=== PATIENT | male | born 1950 | race Caucasian/White ===

== ENCOUNTER 2018-01-17 10:43 | Outpatient (REF) | payer MEDICARE, MEDICAID, SELFPAY ==
[2018-01-17 20:53] LABS: HCT 45.7 % (40.0-50.0); HGB 15.6 g/dL (13.5-17.5); Mean Corp. HGB Concentration 34.1 g/dL (32.0-36.0); Mean Corpuscular Hemoglobin 29.2 pg (27.0-33.0); Mean Corpuscular Volume 85.4 fL (80-95); Platelet Count 459 x1000/uL (130-400); RBC 5.35 m/cumm (4.50-6.00); RBC Distribution Width 14.6 % (11.8-14.1); White Blood Cell Count 8.32 k/cumm (4.4-10.8)
[2018-01-17 20:57] LABS: ALT 40 U/L (12-78); AST 24 U/L (15-37); Albumin 3.5 g/dL (3.4-5.0); Alkaline Phosphatase 131 U/L (46-116); Anion Gap 13.4 mmol/L (3-11); BUN 24 mg/dL (7-18); Bilirubin, Total 0.6 mg/dL (0.2-1.0); CO2 24.6 mmol/L (21.0-32.0); CREATININE 1.04 mg/dL (0.70-1.30); Calcium 9.3 mg/dL (8.5-10.1); Chloride 100 mmol/L (98-107); Glucose 129 mg/dL (70-100); Potassium 3.7 mmol/L (3.5-5.1); Sodium 138 mmol/L (136-145); Total Protein 7.4 g/dL (6.4-8.2); Uric Acid 5.3 mg/dL (3.5-7.2)
== END 2018-01-17 11:03 ==
LOC: NCHCN 10:43
PROVIDERS: PCP Specialist/Technologist Athletic Trainer; Visit Provider Specialist/Technologist Athletic Trainer
DX: M12.871 Other specific arthropathies, not elsewhere classified, right ankle and foot (principal); M10.9 Gout, unspecified
CPT/HCPCS: 80053; 85027; 84550

== ENCOUNTER 2018-10-17 15:31 | Outpatient (REF) | payer MEDICARE, MEDICAID, SELFPAY ==
[2018-10-17 21:17] LABS: ALT 60 U/L (12-78); AST 22 U/L (15-37); Albumin 3.8 g/dL (3.4-5.0); Alkaline Phosphatase 121 U/L (46-116); Anion Gap 12.1 mmol/L (3-11); BUN 24 mg/dL (7-18); Bilirubin, Total 0.6 mg/dL (0.2-1.0); CO2 25.9 mmol/L (21.0-32.0); CREATININE 1.29 mg/dL (0.70-1.30); Calcium 9.7 mg/dL (8.5-10.1); Chloride 104 mmol/L (98-107); Estimated GFR 55.39 (mL/min/1.73m2); Glucose 120 mg/dL (70-100); Potassium 4.2 mmol/L (3.5-5.1); Sodium 142 mmol/L (136-145); Total Protein 7.4 g/dL (6.4-8.2); Uric Acid 5.2 mg/dL (3.5-7.2)
== END 2018-10-17 15:51 ==
LOC: NCHCN 15:31
PROVIDERS: PCP Specialist/Technologist Athletic Trainer; Visit Provider Specialist/Technologist Athletic Trainer
DX: I10 Essential (primary) hypertension (principal); M10.9 Gout, unspecified
CPT/HCPCS: 80053; 84550

== ENCOUNTER 2019-10-23 09:53 | Outpatient (REF) | payer MEDICARE, SELFPAY ==
[2019-10-23 19:27] LABS: Hemoglobin A1C 5.9 % (3.8-5.6)
[2019-10-23 19:42] LABS: Anion Gap 8.9 mmol/L (3-11); BUN 18 mg/dL (7-18); CO2 26.1 mmol/L (21.0-32.0); CREATININE 1.26 mg/dL (0.70-1.30); Calculated LDL 156 mg/dL (<100); Chloride 104 mmol/L (98-107); Cholesterol 228 mg/dL (<200); Estimated GFR 56.74 (mL/min/1.73m2); Glucose 119 mg/dL (74-106); HDL Cholesterol 35 mg/dL (40-60); Potassium 4.6 mmol/L (3.5-5.1); Sodium 139 mmol/L (136-145); Triglyceride 188 mg/dL (<150)
[2019-10-23 19:47] LABS: Calcium 9.8 mg/dL (8.5-10.1)
== END 2019-10-23 10:13 ==
LOC: NCHCN 09:53
PROVIDERS: PCP Specialist/Technologist Athletic Trainer; Visit Provider Nurse Practitioner Family
DX: I10 Essential (primary) hypertension (principal); R73.03 Prediabetes; E78.5 Hyperlipidemia, unspecified
CPT/HCPCS: 80048; 80061; 83036

== ENCOUNTER 2020-09-30 10:20 | Outpatient (REF) | payer MEDICARE, SELFPAY ==
[2020-09-30 16:18] LABS: Hemoglobin A1C 6.1 % (<5.7)
[2020-09-30 16:28] LABS: Anion Gap 10.1 mmol/L (3-11); BUN 20 mg/dL (7-18); CO2 25.9 mmol/L (21.0-32.0); CREATININE 1.2 mg/dL (0.70-1.30); Calcium 9.3 mg/dL (8.5-10.1); Calculated LDL 138 mg/dL (<100); Chloride 105 mmol/L (98-107); Cholesterol 228 mg/dL (<200); Estimated GFR 59.86 (mL/min/1.73m2); Glucose 162 mg/dL (74-106); HDL Cholesterol 34 mg/dL (40-60); Potassium 4.3 mmol/L (3.5-5.1); Sodium 141 mmol/L (136-145); Triglyceride 281 mg/dL (<150)
[2020-10-01 17:23] LABS: Creatine Kinase 57 U/L (39-308)
== END 2020-09-30 10:21 | disposition home or self-care (01) ==
LOC: NCHCN 10:20
PROVIDERS: PCP Specialist/Technologist Athletic Trainer; Visit Provider Nurse Practitioner Family
DX: E78.5 Hyperlipidemia, unspecified (principal); I10 Essential (primary) hypertension; R73.09 Other abnormal glucose
CPT/HCPCS: 80048; 80061; 82550; 83036

== ENCOUNTER 2021-12-30 15:42 | Outpatient (REF) | payer MEDICARE, SELFPAY ==
[2021-12-30 20:15] LABS: Hemoglobin A1C 6.1 % (<5.7)
[2021-12-30 20:24] LABS: Anion Gap 11.8 mmol/L (3-11); BUN 25 mg/dL (7-18); CO2 24.2 mmol/L (21.0-32.0); CREATININE 1.2 mg/dL (0.70-1.30); Calcium 9.4 mg/dL (8.5-10.1); Calculated LDL 50 mg/dL (<100); Chloride 105 mmol/L (98-107); Cholesterol 131 mg/dL (<200); Estimated GFR 64.25 (mL/min/1.73m2); Glucose 193 mg/dL (74-106); HDL Cholesterol 41 mg/dL (40-60); Sodium 141 mmol/L (136-145); Triglyceride 203 mg/dL (<150)
[2021-12-30 20:39] LABS: Uric Acid 8.3 mg/dL (3.5-7.2)
== END 2021-12-30 15:43 | disposition home or self-care (01) ==
LOC: NCHCN 15:42
PROVIDERS: PCP Specialist/Technologist Athletic Trainer; Visit Provider Nurse Practitioner Family
DX: E78.5 Hyperlipidemia, unspecified (principal); I10 Essential (primary) hypertension; M10.9 Gout, unspecified; G47.9 Sleep disorder, unspecified; R73.09 Other abnormal glucose
CPT/HCPCS: 80048; 80061; 83036; 84550

== ENCOUNTER 2023-03-02 19:25 | Outpatient (REF) | payer OTHER, MEDICAID, SELFPAY ==
[2023-03-02 18:43] LABS: Abs Immature Grans 0.02 10^3/uL (0.0-0.06); Absolute Eosinophil Count 0.45 10^3/uL (0.0-0.7); Absolute Monocyte Count 0.98 10^3/uL (0.1-0.8); Absolute Neutrophil Count 6.65 10^3/uL (1.2-6.7); Eosinophils % 4.5; HCT 50.1 % (40.0-50.0); HGB 16.8 g/dL (13.5-17.5); Immature Grans % 0.2; Lymphocytes % 17.2; MCH 29.2 pg (27.0-33.0); MCHC 33.5 % (32.0-36.0); MCV 87 fL (80-95); MPV 10.7 fL (8.0-11.0); Monocytes % 9.9; Neutrophils % 67.2; RBC 5.76 10^6/uL (4.36-5.78); RDW 13.4 % (11.8-14.1); RDW-SD 42.5 fL
[2023-03-02 18:57] LABS: Platelet Count 257 10^3/uL (130-400)
[2023-03-02 19:10] LABS: Hemoglobin A1C 5.8 % (<5.7)
[2023-03-02 19:11] LABS: Vitamin D 25 Total 21.7 ng/mL (30-100)
[2023-03-02 19:14] LABS: ALT 27 U/L (16-63); AST 21 U/L (15-37); Albumin 3.7 g/dL (3.4-5.0); Alkaline Phosphatase 145 U/L (46-116); Anion Gap 9.9 mmol/L (3-11); BUN 15 mg/dL (7-18); Bilirubin, Total 0.6 mg/dL (0.2-1.0); CO2 26.1 mmol/L (21.0-32.0); CREATININE 1.1 mg/dL (0.70-1.30); Calcium 9.9 mg/dL (8.5-10.1); Chloride 101 mmol/L (98-107); Estimated GFR 70.88 (mL/min/1.73m2); Glucose 139 mg/dL (74-106); Potassium 4.4 mmol/L (3.5-5.1); Sodium 137 mmol/L (136-145); Total Protein 7.9 g/dL (6.4-8.2); Vitamin B12 264 pg/mL (193-986)
== END 2023-03-02 19:26 | disposition home or self-care (01) ==
LOC: NCHCN 19:25
PROVIDERS: PCP Specialist/Technologist Athletic Trainer; Visit Provider Nurse Practitioner Family
DX: R73.03 Prediabetes (principal); Z00.00 Encounter for general adult medical examination without abnormal findings; G20.C Parkinsonism, unspecified
CPT/HCPCS: 80053; 82306; 82607; 83036; 85025

== ENCOUNTER 2023-11-23 20:38 | Outpatient (REF) | payer OTHER, MEDICAID, SELFPAY ==
--- OUTSIDE RECORDS SUMMARY | 2023-11-23 20:49 | XMS_ITS | Encounter Summary ---
[place] [address] Care Team Providers Care Convolute Tube Winder Name Role Phone Luiscarmelita Dannielle CORONEL Primary Care Provider [phone] Reason for Visit * Diagnostic Test (Routine) - Closed Specialty Diagnoses / Procedures Referred By Contac t Referred To Contact Radiology Diagnoses Parkinsonism, unspecified Parkinsonism type Procedures NM Brain Imaging for Parkinsons Disease Brody Mendez MD [address] [place] [address] [place] [address] Referral ID Status Reason Start Date Expiration Date V isits Requested Visits Authorized [id number] Closed Specialty Service Requested 09/07/2021 03/10/2023 1 1 Encounter Details Date Type Department Care Team (Late st Contact Info) Description 11/04/2021 5:57 AM EDT - 11/04/2021 12:54 PM EDT Hospital Encounter [place] [address] Brody Mendez MD [address] [place] [address] Discharge Disposition: Home Social History Tobacco Use Types Packs/Day Years Used Date Smoking Tobacco: Never Assessed Sex and Gender Information Value Date Recorded Sex Assigned at Not on file Gender Identity Not on file Sexual Orientation Not on file documented as of this encounter Plan of Treatment Not on file documented as of this encounter Procedures Procedure Name Priority Date/Time Associated Diagnosis Comments NM BRAIN IMAGING FOR PARKINSONS DISEASE Routine 11/04/2021 2:08 PM EDT Parkinsonism, unspecified Parkinsonism type documented in this encounter Visit Diagnoses Not on filedocumented in this encounter Administered Medications Inactive Administered Medications - up to 3 most recent administrations Medication Order MAR Action Action Date Dose Rate Site ioflupane (I-123) (DATSCAN) injection 0-6 mCi 0-6 mCi, Intravenous, ONCE PRN, 1 dose, Starting on Sun11/04/21 at 0913, Until Sun11/04/21 at 0850, Per Protocol, Radiology Contrast, Routine Given 11/04/2021 8:50 AM EDT 5.3 mCi documented in this encounter Care Teams Convolute Tube Winder Relationship Specialty Start Date End Date Dannielle Ny APRN [address] [place] [address] PCP - General Family Medicine 11/04/21 documented as of this encounter
--- OUTSIDE RECORDS SUMMARY | 2023-11-23 20:49 | XMS_ITS | Encounter Summary ---
[place] [address] Care Team Providers Care Nurse Anesthetist Name Role Phone Dannielle Ny APRN Primary Care Provider [phone] Reason for Referral * Diagnostic Test (Routine) - Closed Specialty Diagnoses / Procedures Referred By Contac t Referred To Contact Radiology Diagnoses Parkinsonism, unspecified Parkinsonism type Procedures NM Brain Imaging for Parkinsons Disease Brody Mendez MD [address] [place] [address] [place] [address] Referral ID Status Reason Start Date Expiration Date V isits Requested Visits Authorized [id number] Closed Specialty Service Requested 09/07/2021 03/10/2023 1 1 Reason for Visit * Diagnostic Test (Routine) - Closed Specialty Diagnoses / Procedures Referred By Contac t Referred To Contact Radiology Diagnoses Parkinsonism, unspecified Parkinsonism type Procedures NM Brain Imaging for Parkinsons Disease Brody Mendez MD [address] [place] [address] [place] [address] Referral ID Status Reason Start Date Expiration Date V isits Requested Visits Authorized [id number] Closed Specialty Service Requested 09/07/2021 03/10/2023 1 1 Encounter Details Date Type Department Care Team (Late st Contact Info) Description 11/04/2021 5:55 AM EDT - 11/04/2021 5:56 AM EDT Hospital Encounter Nuclear [place] [address] Brody Mendez MD [address] [place] [address] Parkinsonism, unspecified Parkinsonism type Discharge Disposition: Home Social History Tobacco Use [...] unspecified Parkinsonism type documented in this encounter Results * NM Brain Imaging for Parkinsons Disease (11/04/2021 2:08 PM EDT) Anatomical Region Laterality Modality Nuclear Medicine Impressions 11/04/2021 3:54 PM EDT Findings consistent a Parkinsonian syndrome. I have personally reviewed the image(s) and the resident's interpretation and agree with the findings, Nickolas Herr MD at 11/04/2021 3:54 PM Thank you for letting us participate in the care of this patient. ??If you are a health care provider and have any questions regarding this report, please contact the number below. ??For patients who have questions please contact the health care program resident that requested your imaging first. ? Narrative 11/04/2021 3:54 PM EDT EXAMINATION: NM BRAIN IMAGING FOR PARKINSONS DISEASE CLINICAL HISTORY: Parkinsonism, dementia, falls, abnormal gait. Is there parkinson disease? TECHNIQUE: Pretreatment with oral potassium iodide was given. Following this, I-123 ioflupane was administered intravenously in a dose of 5.3 mCi. Four hours later, tomographic imaging of the brain was performed with images reconstructed in the axial, sagittal and coronal planes COMPARISON: None FINDINGS: Bilateral decreased uptake in the putamen and caudate nuclei. Procedure Note Nickolas Herr MD - 11/04/2021 EXAMINATION: NM BRAIN IMAGING FOR PARKINSONS DISEASE CLINICAL HISTORY: Parkinsonism, dementia, falls, abnormal gait. Is there parkinson disease? TECHNIQUE: Pretreatment with oral potassium iodide was given. Followingthis, I-123 ioflupane was administered intravenously in a dose of 5.3 mCi. Fourhours later, tomographic imaging of the brain was performed with imagesreconstructed in the axial, sagittal and coronal planes COMPARISON: None FINDINGS: Bilateral decreased uptake in the putamen and caudate nuclei. IMPRESSION Findings consistent a Parkinsonian syndrome. I have personally reviewed the image(s) and the resident's interpretationand agree with the findings, Nickolas Herr MD at 11/04/2021 3:54 PM Thank you for letting us participate in the care of this patient. If youare a health care provider and have any questions regarding this report,please contact the number below. For patients who have questions please contactthe health care program resident that requested your imaging first. Brody Mendez MD [facility] [place] ORDERABLES documented in this encounter Visit Diagnoses Diagnosis Parkinsonism, unspecified Parkinsonism type documented in this encounter Administered Medications Inactive Administered Medications - up to 3 most recent administrations Medication Order MAR Action Action Date Dose Rate Site strong iodine (Lugols) 5% oral liquid 0.8 mL 0.8 mL, Oral, ONCE, 1 dose, On Sun11/04/21 at 0830, Radiology Contrast, Routine Given 11/04/2021 7:50 AM EDT 0.8 mLs documented in this encounter Care Teams Nurse Anesthetist Relationship Specialty Start Date End Date Dannielle Ny APRN [address] [place] [address] PCP - General Family Medicine 11/04/21 documented as of this encounter
--- OUTSIDE RECORDS SUMMARY | 2023-11-23 20:49 | XMS_ITS | Encounter Summary ---
[place] [address] Care Team Providers Care Mechanical Technologist Name Role Phone Luiscarmelita Dannielle CORONEL Primary Care Provider [phone] Reason for Visit * Diagnostic Test (Routine) - Closed Specialty Diagnoses / Procedures Referred By Contac t Referred To Contact Radiology Diagnoses Parkinsonism, unspecified Parkinsonism type Procedures NM Brain Imaging for Parkinsons Disease Brody Mendez MD [address] [place] [address] [place] [address] Referral ID Status Reason Start Date Expiration Date V isits Requested Visits Authorized [id number] Closed Specialty Service Requested 09/07/2021 03/10/2023 1 1 Encounter Details Date Type Department Care Team (Late st Contact Info) Description 11/04/2021 12:55 PM EDT - 11/04/2021 11:59 PM EDT Hospital Encounter [place] [address] Brody Mendez MD [address] [place] [address] Discharge Disposition: Home Social History [...] who have questions please contact the health residential caregiver that requested your imaging first. ? Electronically signed by: Nickolas Herr MD, [facility] ([phone]), at 11/04/2021 3:54 PM Narrative 11/04/2021 3:54 PM EDT EXAMINATION: NM [...] patients who have questions please contactthe health residential caregiver that requested your imaging first. Electronically signed by: Nickolas Herr MD, [facility]([phone]), at 11/04/2021 3:54 PM Brody Mendez MD [facility] [place] NM ORDERABLES documented in this encounter Visit Diagnoses Not on filedocumented in this encounter Care Teams Mechanical Technologist Relationship Specialty Start Date End Date Dannielle Ny APRN [address] [place] [address] PCP - General Family Medicine 11/04/21 documented as of this encounter
--- OUTSIDE RECORDS SUMMARY | 2023-11-23 20:49 | XMS_ITS | Encounter Summary ---
[place] [address] Care Team Providers Care Procedures Rn Name Role Phone Dannielle Ny APRN Primary Care Provider [phone] Reason for Referral * Consultation (Routine) - Closed Specialty Diagnoses / Procedures Referred By Contjoshua t Referred To Contact Neurology Diagnoses Cognitive decline Ariel Tran DO [address] [place] [address] [facility] [address] [place] [phone] Referral ID Status Reason Start Date Expiration Date V isits Requested Visits Authorized [id number] Closed Consult, Test & Treat PCP Updated and/or Approved 04/19/2022 04/19/2023 6 6 Encounter Details Date Type Department Care Team (Late st Contact Info) Description 04/19/2022 Transcribe Orders eDH Incoming Referrals [phone] Ariel Tran DO [address] [place] [address] Cognitive decline Social History Tobacco Use Types Packs/Day Years Used Date Smoking Tobacco: Never Assessed Sex and Gender Information Value Date Recorded Sex Assigned at Not on file Gender Identity Not on file Sexual Orientation Not on file documented as of this encounter Plan of Treatment Scheduled Referrals Name Type Priority Associated Diagnoses Orde r Schedule Referral to Neurology Outpatient Referral Routine Cognitive decline Ordered: 04/19/2022 documented as of this encounter Visit Diagnoses Diagnosis Cognitive decline Unspecified persistent mental disorders due to conditions classified elsewhere documented in this encounter Care Teams Procedures Rn Relationship Specialty Start Date End Date Dannielle Ny APRN [address] [place] [address] PCP - General Family Medicine 11/04/21 documented as of this encounter
--- OUTSIDE RECORDS SUMMARY | 2023-11-23 20:49 | XMS_ITS | Clinical Summary ---
Author Organization [facility] [place] [address] Care Team Providers Care Abrasive Coating Machine Operator Name Role Phone Yanely Dannielle CORONEL Primary Care Provider [phone] Social History Tobacco Use Types Packs/Day Years Used Date Smoking Tobacco: Never Assessed Sex and Gender Information Value Date Recorded Sex Assigned at Not on file Gender Identity Not on file Sexual Orientation Not on file Plan of Treatment Health Maintenance Due Date Last Done Comments CT Colonography 1949 Colonoscopy 1949 Colorectal Cancer Screening 1949 FIT DNA 1949 FIT 1949 Sigmoidoscopy (10 year) with FIT yearly 1949 Sigmoidoscopy 1950 Hepatitis C Screening 12/30/1967 Lipid Screening 12/30/1967 Tdap adult 1968 Tetanus vaccine 1968 Zoster vaccine (1 of 2) 12/30/1999 Advance Directive 2004 Pneumoccocal Vaccine: 65+ (1 of 1 - PCV) 2014 Covid-19 Vaccine ( - 2022-24 season) 2022 Influenza (Flu) vaccine (1 o f 1 - Influenza standard series) 12/30/2023 Care Teams Abrasive Coating Machine Operator Relationship Specialty Start Date End Date Dannielle Ny APRN [address] [place], [place] [id number] PCP - General Family Medicine 11/04/21
== END 2023-11-23 20:39 | disposition home or self-care (01) ==
LOC: NCHCN 20:38
PROVIDERS: PCP Nurse Practitioner Family; Visit Provider Nurse Practitioner Family
DX: R82.998 Other abnormal findings in urine (principal); R39.89 Other symptoms and signs involving the genitourinary system
CPT/HCPCS: 87086

== ENCOUNTER 2024-01-10 16:35 | Outpatient (REF) | payer OTHER, MEDICAID, SELFPAY ==
[2024-01-10 20:14] LABS: ALT 48 U/L (16-63); AST 23 U/L (15-37); Albumin 3.7 g/dL (3.4-5.0); Alkaline Phosphatase 137 U/L (46-116); Anion Gap 8.5 mmol/L (3-11); BUN 21 mg/dL (7-18); Bilirubin, Total 0.66 mg/dL (0.2-1.0); CO2 26.5 mmol/L (21.0-32.0); CREATININE 1.2 mg/dL (0.70-1.30); Calcium 9.6 mg/dL (8.5-10.1); Chloride 104 mmol/L (98-107); Estimated GFR 63.46 (mL/min/1.73m2); Glucose 130 mg/dL (74-106); Potassium 4.3 mmol/L (3.5-5.1); Sodium 139 mmol/L (136-145); Total Protein 7.2 g/dL (6.4-8.2); Vitamin B12 680 pg/mL (193-986); Vitamin D 25 Total 19.4 ng/mL (30-100)
[2024-01-10 20:30] LABS: Uric Acid 9.7 mg/dL (3.5-7.2)
[2024-01-10 20:50] LABS: Hemoglobin A1C 5.8 % (<5.7)
== END 2024-01-10 16:36 | disposition home or self-care (01) ==
LOC: NCHCN 16:35
PROVIDERS: PCP Nurse Practitioner Family; Visit Provider Nurse Practitioner Family
DX: R73.03 Prediabetes (principal); E55.9 Vitamin D deficiency, unspecified
CPT/HCPCS: 80053; 82306; 82607; 83036; 84550

== ENCOUNTER 2024-01-31 15:34 | Outpatient (REF) | payer OTHER, MEDICAID, SELFPAY ==
--- OUTSIDE RECORDS SUMMARY | 2024-01-31 15:37 | XMS_ITS | Encounter Summary ---
Author [facility] [place] [address] Care Team Providers Care Stores Clerk Name Role Phone Luiscarmelita Dannielle CORONEL Primary Care Provider [phone] Reason for Visit * Diagnostic Test (Routine) - Closed Specialty Diagnoses / Procedures Referred By Contac t Referred To Contact Radiology Diagnoses Parkinsonism, unspecified Parkinsonism type Procedures NM Brain Imaging for Parkinsons Disease Brody Mendez MD [address] [place] [address] [place] [address] Referral ID Status Reason Start Date Expiration Date V isits Requested Visits Authorized [id number] Closed Specialty Service Requested 09/07/2021 03/10/2023 1 1 Encounter Details Date Type Department Care Team (Latest Contact Info) Description 11/04/2021 5:57 AM EDT - 11/04/2021 12:54 PM EDT Hospital Encounter [place] [address] Brody Mendez MD [address] [place] [id number] Discharge Disposition: Home Social History Tobacco Use [...] mCi documented in this encounter Care Teams Stores Clerk Relationship Specialty Start Date End Date Dannielle Ny, [employer] [address] [place] [address] PCP - General Family Medicine 11/04/21 documented as of this encounter
--- OUTSIDE RECORDS SUMMARY | 2024-01-31 15:37 | XMS_ITS | Encounter Summary ---
[place] [address] Care Team Providers Care Basketballs And Footballs Reverser Name Role Phone Dannielle Ny APRN Primary Care Provider [phone] Reason for Referral * Diagnostic Test (Routine) - Closed Specialty Diagnoses / Procedures Referred By Contac t Referred To Contact Radiology Diagnoses Parkinsonism, unspecified Parkinsonism type Procedures NM Brain Imaging for Parkinsons Disease Brody Mendez MD [address] [place] [address] [place] [address] Referral ID Status Reason Start Date Expiration Date V isits Requested Visits Authorized [id number] Closed Specialty Service Requested 09/07/2021 03/10/2023 1 1 Reason for Visit * Diagnostic Test (Routine) - Closed Specialty Diagnoses / Procedures Referred By Contac t Referred To Contact Radiology Diagnoses Parkinsonism, unspecified Parkinsonism type Procedures NM Brain Imaging for Parkinsons Disease Brody Mendez MD [address] [place] [address] [place] [address] Referral ID Status Reason Start Date Expiration Date V isits Requested Visits Authorized [id number] Closed Specialty Service Requested 09/07/2021 03/10/2023 1 1 Encounter Details Date Type Department Care Team (Latest Contact Info) Description 11/04/2021 5:55 AM EDT - 11/04/2021 5:56 AM EDT Hospital En[place] [address] Brody Mendez MD [address] [place] [address] Parkinsonism, unspecified Parkinsonism type Discharge Disposition: Home [...] who have questions please contact the health school child care attendant that requested your imaging first. ? Narrative [...] patients who have questions please contactthe health school child care attendant that requested your imaging first. Electronically signed by: [facility]olas [facility]([phone]), at 11/04/2021 3:54 PM Brody Mendez MD [facility] [place] ORDERABLES documented in this encounter Visit [...] mLs documented in this encounter Care Teams Basketballs And Footballs Reverser Relationship Specialty Start Date End Date Dannielle Ny, HOMER [address] [place] [address] PCP - General Family Medicine 11/04/21 documented as of this encounter
--- OUTSIDE RECORDS SUMMARY | 2024-01-31 15:37 | XMS_ITS | Encounter Summary ---
Author Organization [facility] [place] [address] Care Team Providers Care Cloth Picker Name Role Phone Luiscarmelita Dannielle CORONEL Primary Care Provider [phone] Reason for Visit * Diagnostic Test (Routine) - Closed Specialty Diagnoses / Procedures Referred By Contac t Referred To Contact Radiology Diagnoses Parkinsonism, unspecified Parkinsonism type Procedures NM Brain Imaging for Parkinsons Disease Brody Mendez MD [address] [place] [address] [place] [address] Referral ID Status Reason Start Date Expiration Date V isits Requested Visits Authorized [id number] Closed Specialty Service Requested 09/07/2021 03/10/2023 1 1 Encounter Details Date Type Department Care Team (Latest Contact Info) Description 11/04/2021 12:55 PM EDT - 11/04/2021 11:59 PM EDT Hospital Encounter [place] [address] Brody Mendez MD [address] [place] [id number] Discharge Disposition: Home Social History Tobacco Use [...] who have questions please contact the health caregivers homecare that requested your imaging first. ? Electronically signed by: Nickloas Herr MD, [facility] ([phone]), at 11/04/2021 3:54 PM Narrative 11/04/2021 3:54 [...] patients who have questions please contactthe health caregivers homecare that requested your imaging first. Electronically signed by: Nickolas Herr MD, [facility]([phone]), at 11/04/2021 3:54 PM Brody Mendez MD [facility] NM ORDERABLES documented in this encounter Visit Diagnoses Not on filedocumented in this encounter Care Teams Cloth Picker Relationship Specialty Start Date End Date Dannielle Ny APRN [address] [place] [address] PCP - General Family Medicine 11/04/21 documented as of this encounter
--- OUTSIDE RECORDS SUMMARY | 2024-01-31 15:37 | XMS_ITS | Encounter Summary ---
[place] [address] Care Team Providers Care Private Detective Name Role Phone Dannielle Ny APRN Primary Care Provider [phone] Reason for Referral * Consultation (Routine) - Closed Specialty Diagnoses / Procedures Referred By Contjoshua t Referred To Contact Neurology Diagnoses Cognitive decline Ariel Tran DO [address] [place] [address] [facility] [address] [place] [phone] Referral ID Status Reason Start Date Expiration Date V isits Requested Visits Authorized [id number] Closed Consult, Test & Treat PCP Updated and/or Approved 04/19/2022 04/19/2023 6 6 Encounter Details Date Type Department Care Team (Late st Contact Info) Description 04/19/2022 Transcribe Orders eDH Incoming Referrals [phone] Ariel Tran DO [address] [place] [address] Cognitive decline Social History Tobacco Use Types [...] elsewhere documented in this encounter Care Teams Private Detective Relationship Specialty Start Date End Date Dannielle Ny APRN [address] [place] [address] PCP - General Family Medicine 11/04/21 documented as of this encounter
--- OUTSIDE RECORDS SUMMARY | 2024-01-31 15:37 | XMS_ITS | Clinical Summary ---
Author Organization [facility] [place] [address] Care Team Providers Care Associate Dean Name Role Phone Dannielle Ny APRN Primary Care Provider [phone] Social History Tobacco Use Types Packs/Day Years [...] Hepatitis C Screening 12/30/1967 Lipid Screening 12/30/1967 Tetanus/Diphtheria/Pertussis Vaccines (1 - Tdap) 12/29 Zoster vaccine (1 of 2) 12/30/1999 Advance Directive 2004 Pneumoccocal Vaccine: 65+ (1 of 1 - PCV) 2014 Covid-19 Vaccine (1 - 2022-24 season) 2023 Influenza (Flu) vaccine (1 o f 1 - Influenza standard series) 12/30/2023 Care Teams Associate Dean Relationship Specialty Start Date End Date Dannielle Ny APRN [address] [place] [address] PCP - General Family Medicine 11/04/21
== END 2024-01-31 15:35 | disposition home or self-care (01) ==
LOC: NCHCN 15:34
PROVIDERS: PCP Nurse Practitioner Family; Visit Provider Nurse Practitioner Family
DX: R32 Unspecified urinary incontinence (principal)
CPT/HCPCS: 87086

== ENCOUNTER 2024-02-13 15:40 | Outpatient (REF) | payer OTHER, MEDICAID, SELFPAY ==
--- OUTSIDE RECORDS SUMMARY | 2024-02-13 15:43 | XMS_ITS | Encounter Summary ---
[facility] [place] [address] Care Team Providers Care Import/Export Analyst Name Role Phone Luiscarmelita Dannielle CORONEL Primary Care Provider [phone] Reason for Visit * Diagnostic Test (Routine) - Closed Specialty Diagnoses / Procedures Referred By Contac t Referred To Contact Radiology Diagnoses Parkinsonism, unspecified Parkinsonism type Procedures NM Brain Imaging for Parkinsons Disease Brody Mendez MD [address] [place] [address] [place] [address] Referral ID Status Reason Start Date Expiration Date V isits Requested Visits Authorized [id number] Closed Specialty Service Requested 09/07/2021 03/10/2023 1 1 Encounter Details Date Type Department Care Team (Latest Contact Info) Description 11/04/2021 5:57 AM EDT - 11/04/2021 12:54 PM EDT Hospital En[place] [address] Brody Mendez MD [address] [place] [id number] Discharge Disposition: Home Social History Tobacco Use [...] mCi documented in this encounter Care Teams Import/Export Analyst Relationship Specialty Start Date End Date Dannielle Ny, MILL HAND [address] [place] [address] PCP - General Family Medicine 11/04/21 documented as of this encounter
--- OUTSIDE RECORDS SUMMARY | 2024-02-13 15:43 | XMS_ITS | Encounter Summary ---
Author [facility] [place] [address] Care Team Providers Care Web Machine Tender Name Role Phone Luiscarmelita Dannielle CORONEL Primary Care Provider [phone] Reason for Visit * Diagnostic Test (Routine) - Closed Specialty Diagnoses / Procedures Referred By Contac t Referred To Contact Radiology Diagnoses Parkinsonism, unspecified Parkinsonism type Procedures NM Brain Imaging for Parkinsons Disease Brody Mendez MD [address] [place] [address] [place] [address] Referral ID Status Reason Start Date Expiration Date V isits Requested Visits Authorized [id number] Closed Specialty Service Requested 09/07/2021 03/10/2023 1 1 Encounter Details Date Type Department Care Team (Latest Contact Info) Description 11/04/2021 12:55 PM EDT - 11/04/2021 11:59 PM EDT Hospital Encounter [place] [address] Brody Mendez MD [address] [place] [id number] Discharge Disposition: Home Social History Tobacco Use [...] who have questions please contact the health day care center director that requested your imaging first. ? Electronically signed by: Nickolas Herr MD, [facility] ([phone]), at 11/04/2021 3:54 PM Narrative 11/04/2021 3:54 [...] patients who have questions please contactthe health day care center director that requested your imaging first. Electronically signed by: Nickolas Herr MD, [facility]([phone]), at 11/04/2021 3:54 PM Brody Mendez MD IMG NM ORDERABLES documented in this encounter Visit Diagnoses Not on filedocumented in this encounter Care Teams Web Machine Tender Relationship Specialty Start Date End Date Dannielle Ny APRN [address] [place] [address] PCP - General Family Medicine 11/04/21 documented as of this encounter
--- OUTSIDE RECORDS SUMMARY | 2024-02-13 15:43 | XMS_ITS | Encounter Summary ---
[place] [address] Care Team Providers Care Risk Management Specialist Name Role Phone Dannielle Ny APRN Primary Care Provider [phone] Reason for Referral * Consultation (Routine) - Closed Specialty Diagnoses / Procedures Referred By Contjoshua t Referred To Contact Neurology Diagnoses Cognitive decline Ariel Tran DO [address] [place] [address] [facility] [address] [place] [phone] Referral ID Status Reason Start Date Expiration Date V isits Requested Visits Authorized [id number] Closed Consult, Test & Treat PCP Updated and/or Approved 04/19/2022 04/19/2023 6 6 Encounter Details Date Type Department Care Team (Late st Contact Info) Description 04/19/2022 Transcribe Orders eDH Incoming Referrals [phone] Ariel Tran DO [address] [place] [address] Cognitive decline Social History Tobacco Use Types [...] elsewhere documented in this encounter Care Teams Risk Management Specialist Relationship Specialty Start Date End Date Dannielle Ny APRN [address] [place] [address] PCP - General Family Medicine 11/04/21 documented as of this encounter
--- OUTSIDE RECORDS SUMMARY | 2024-02-13 15:43 | XMS_ITS | Encounter Summary ---
[place] [address] Care Team Providers Care Assembly Lead Person Name Role Phone Dannielle Ny APRN Primary Care Provider [phone] Reason for Referral * Diagnostic Test (Routine) - Closed Specialty Diagnoses / Procedures Referred By Contac t Referred To Contact Radiology Diagnoses Parkinsonism, unspecified Parkinsonism type Procedures NM Brain Imaging for Parkinsons Disease Brody Mendez MD [address] [place] [id number] [place] [address] Referral ID Status Reason Start Date Expiration Date V isits Requested Visits Authorized [id number] Closed Specialty Service Requested 09/07/2021 03/10/2023 1 1 Reason for Visit * Diagnostic Test (Routine) - Closed Specialty Diagnoses / Procedures Referred By Contac t Referred To Contact Radiology Diagnoses Parkinsonism, unspecified Parkinsonism type Procedures NM Brain Imaging for Parkinsons Disease Brody Mendez MD [address] [place] [address] [place] [address] Referral ID Status Reason Start Date Expiration Date V isits Requested Visits Authorized [id number] Closed Specialty Service Requested 09/07/2021 03/10/2023 1 1 Encounter Details Date Type Department Care Team (Latest Contact Info) Description 11/04/2021 5:55 AM EDT - 11/04/2021 5:56 AM EDT Hospital Encounter [place] [address] Brody Mendez MD [address] [place] [id number] Parkinsonism, unspecified Parkinsonism type Discharge Disposition: Home [...] who have questions please contact the health manager managed care that requested your imaging first. ? Electronically signed by: Nickolas Herr MD, [facility] ([phone]), at 11/04/2021 3:54 PM Narrative 11/04/2021 3:54 [...] the resident's interpretationand agree with the findings, iNckolas Herr MD at 11/04/2021 3:54 PM Thank you for letting us participate in the care of this patient. If youare a health care provider and have any questions regarding this report,please contact the number below. For patients who have questions please contactthe health manager managed care that requested your imaging first. Electronically signed by: [facility]([phone]), at 11/04/2021 3:54 PM Brody Mendez MD [facility] [place]LES documented in this encounter Visit [...] mLs documented in this encounter Care Teams Assembly Lead Person Relationship Specialty Start Date End Date Dannielle Ny, [address] [place] [address] PCP - General Family Medicine 11/04/21 documented as of this encounter
--- OUTSIDE RECORDS SUMMARY | 2024-02-13 15:43 | XMS_ITS | Clinical Summary ---
Author Organization [facility] [place] [address] Care Team Providers Care Hydraulic Press In Operator Name Role Phone Yanely Dannielle CORONEL Primary Care Provider [phone] Social History Tobacco Use Types Packs/Day Years [...] - Influenza standard series) 12/30/2023 Care Teams Hydraulic Press In Operator Relationship Specialty Start Date End Date Dannielle Ny APRN [address] [place] [address] PCP - General Family Medicine 11/04/21
[2024-02-13 18:51] LABS: Uric Acid 6.7 mg/dL (3.5-7.2)
== END 2024-02-13 15:41 | disposition home or self-care (01) ==
LOC: NCHCN 15:40
PROVIDERS: PCP Nurse Practitioner Family; Visit Provider Nurse Practitioner Family
DX: M10.09 Idiopathic gout, multiple sites (principal)
CPT/HCPCS: 84550

== ENCOUNTER → 2024-06-04 11:53 | Outpatient (BNVA) | payer MEDICARE, MEDICAID, SELFPAY | PROVIDERS: PCP Nurse Practitioner Family; Referring Provider Nurse Practitioner Family; Visit Provider Podiatrist | DX: L60.3 Nail dystrophy (principal); B35.1 Tinea unguium; G20.C Parkinsonism, unspecified | CPT/HCPCS: 99204 ==